=== PATIENT | female | born 1970 | race Caucasian/White ===

== ENCOUNTER 2023-11-29 14:35 | Emergency (ER) | payer OTHER ==
[2023-11-29 15:04] VITALS: BP 150/80; O2SAT 100
--- NOTE | 2023-11-29 15:26 | XRAY Report ---
PROCEDURE: Wrist 3+V RT INDICATIONS: pain TECHNIQUE: 3 views of the wrist were acquired. COMPARISON: None. FINDINGS: Bones: Minimally displaced distal radial metaphyseal fracture. No gross intra-articular extension. Soft tissues: No suspicious soft tissue calcifications or masses. IMPRESSION: Minimally displaced distal radial metaphyseal fracture. Reviewed by: Cher Peterson MD on 11/29/2023 3:24 PM PDT Approved by: Cher Peterson MD on 11/29/2023 3:24 PM PDT Station ID: [id number]
--- NOTE | 2023-11-29 15:51 | ED Physician Documentation ---
PD HPI UPPER EXT INJURY - Stated complaint Stated Complaint: FALL,RT WRIST PX/SWELLING - Chief complaint Chief Complaint: Trauma Ext - History obtained from History obtained from: Patient - History of Present Illness Location: Right - Additonal information Additional information: Right-handed woman had a trip and fall with [employer] last evening and injured her right wrist. No other injuries. Pain is moderate but controlled with Aleve. PD PAST MEDICAL HISTORY - Past Medical History Past Medical History: No - Past Surgical History Past Surgical History: No - Allergies Allergies/Adverse Reactions: Allergies Allergy/AdvReac Type Severity Reaction Status Date / Time Penicillins Allergy Rash Verified 11/29/23 14:52 - Social History Does the pt smoke?: No Smoking Status: Never smoker Does the pt drink ETOH?: No Does the pt have substance abuse?: No - Immunizations Immunizations are current?: Yes - POLST Patient has POLST: No PD ED PE NORMAL - Vitals Vital signs reviewed: Yes - General General: Alert and oriented X 3, No acute distress - Neck Neck: Supple, no meningeal sign, No bony TTP - Extremities Extremities: Other (Tender and bruised over the distal wrist on the right. No deformity. Mildly limited range of motion due to pain. Normal neurovascular function in the right hand.) - Neuro Neuro: Alert and oriented X 3, Normal speech Results - Vitals Vitals: Vital Signs - 24 hr 11/29/23 14:52 Temperature 36.5 C Heart Rate 80 Respiratory 16 Rate Blood Pressure 150/80 H O2 Saturation 100 Oxygen O2 Source Room air - Rads (name of study) Three-view x-ray right wrist demonstrates a distal radial fracture Relevant Findings:: Final report received, [facility] independent interpretation of test Procedures - Splint (location) - Minor R wrist Splint applied by: Physician Type of splint: Fiberglass, Short arm, Thumb spica Other: Patient tolerated well, No complications, Neurovascular intact Departure - Departure Disposition: 01 Home, Self Care Clinical Impression: Distal radius fracture, right Qualifiers: Encounter type: initial encounter Fracture type: closed Fracture morphology: other extra-articular Qualified Code(s): S52.551A - Other extraarticular fracture of lower end of right radius, initial encounter for closed fracture Condition: Good Record reviewed to determine appropriate education?: Yes Instructions: ED Fx Forearm Radius Ulna No Redu Requ Follow-Up: Orthopedic Care [Provider Group] Comments: You have a fracture of the right distal radius. Keep the splint on and dry. You can take Aleve for pain you can also elevate and ice it. Call the orthopedics clinic for follow-up in about a week give or take. Return for new or worsening symptoms.
== END 2023-11-29 15:55 | disposition home or self-care (01) ==
LOC: ED 14:35
DX: S52.501A Unspecified fracture of the lower end of right radius, initial encounter for closed fracture (principal); W01.0XXA Fall on same level from slipping, tripping and stumbling without subsequent striking against object, initial encounter
CPT/HCPCS: 29125; 99283

== ENCOUNTER 2023-12-06 13:50 | Outpatient (CLI) | payer OTHER ==
--- NOTE | 2023-12-07 09:14 | XRAY Report ---
PROCEDURE: Wrist 3+V RT INDICATIONS: RIGHT WRIST PAIN TECHNIQUE: 3 views of the wrist were acquired. COMPARISON: 11/29/2023 FINDINGS: Bones: There is a transverse, slightly comminuted, impaction fracture of the distal radius with frac ture fragments in fairly stable position compared to prior exam. Distal radioulnar joint remains inta ct. Radiocarpal alignment remains normal. There may be a tiny avulsion fracture of the ulnar styloid. Soft tissues: No suspicious soft tissue calcifications or masses. IMPRESSION: Stable appearance of impacted and minimally displaced distal radius fracture without definite intra-a rticular extension. Possible ulnar styloid avulsion. Reviewed by: Bella Lewis MD on 12/07/2023 9:12 AM PDT Approved by: Bella Lewis MD on 12/07/2023 9:12 AM PDT Station ID: [id number]
== END 2023-12-06 13:51 | disposition home or self-care (01) ==
LOC: DI 13:50
PROVIDERS: ATTEND Orthopaedic Surgery
DX: S52.501A Unspecified fracture of the lower end of right radius, initial encounter for closed fracture (principal)

== ENCOUNTER 2024-01-03 08:59 | Outpatient (CLI) | payer OTHER ==
--- NOTE | 2024-01-03 17:33 | XRAY Report ---
PROCEDURE: Wrist 3+V RT INDICATIONS: LOWER END RIGHT RADIUS FRACTURE TECHNIQUE: 3 views of the wrist were acquired. COMPARISON: Right wrist radiograph on December 06, 2023. FINDINGS: Bones: Interval callus formation of transverse, intra-articular, impacted, minimally displaced fract ure of the distal radius. Slight callus formation of mildly displaced ulnar styloid fracture. Stable alignment. No suspicious bony lesions. Soft tissues: No suspicious soft tissue calcifications or masses. IMPRESSION: 1.Interval osseous healing of minimally displaced extra-articular distal radius fracture. 2.Interval osseous healing of mildly displaced ulna styloid fracture. 3.Stable alignment. Reviewed by: iMchael Belcher MD on 01/03/2024 5:32 PM PDT Approved by: Michael Belcher MD on 01/03/2024 5:32 PM PDT Station ID: [id number]
== END 2024-01-03 09:00 | disposition home or self-care (01) ==
LOC: DI 08:59
PROVIDERS: ATTEND Orthopaedic Surgery
DX: S52.521D Torus fracture of lower end of right radius, subsequent encounter for fracture with routine healing (principal); S52.611D Displaced fracture of right ulna styloid process, subsequent encounter for closed fracture with routine healing